=== PATIENT | male | born 1975 | race African-American/Black ===

== ENCOUNTER 2022-02-26 00:30 | Emergency (ER) | payer MEDICAID, OTHER ==
[~2022-02-26] VITALS: Ht 165.1 cm; Wt 48.5 kg
[2022-02-26 01:23] VITALS: BP 144/106
== END 2022-02-26 04:20 | disposition left against medical advice (07) ==
LOC: ER 00:59
DX: Z53.21 Procedure and treatment not carried out due to patient leaving prior to being seen by health care provider (principal)